=== PATIENT | female | born 1965 | race Caucasian/White ===

== ENCOUNTER 2017-04-06 07:51 | Day surgery (SDC) | payer OTHER ==
[~2017-04-06] VITALS: Ht 160 cm; Wt 88.7 kg
[2017-04-06 08:14] VITALS: Ht 160 cm; Wt 88.7 kg
[2017-04-06] MEDS ORDERED: DOCUSATE (08:36)
[2017-04-06] MEDS ORDERED: OMEPRAZOLE (08:36)
[2017-04-06 08:54] VITALS: BP 106/53; PULSE 65; RESP 18
[2017-04-06] MEDS ORDERED: PROPOFOL 20 ML ONE ×2 (08:57→09:47)
[2017-04-06] MEDS ORDERED: MIDAZOLAM 1 MG/ML 2 ML INJ ONE (08:57)
[2017-04-06] MEDS ORDERED: LIDOCAINE 2% (SDV) 5 ML INJ ONE (08:57)
[2017-04-06 10:10] VITALS: BP 87/51; RESP 20
--- NOTE | 2017-04-06 17:07 | GILP ---
DATE OF PROCEDURE: 04/06/2017 PROCEDURES: 1. Esophagogastroduodenoscopy and biopsy. 2. Colonoscopy. SURGEON: Daniel Ribeiro MD INDICATION: A 51-year-old female undergoing this procedure for persistent epigastric pain and sever e constipation. The purpose is to evaluate the upper GI and lower GI tract and find out the cause o f her symptoms. INFORMED CONSENT: The risk of the procedure, related and unrelated complications, anesthetic risks, alternatives discussed and informed consent was obtained. DESCRIPTION OF PROCEDURE: The patient was brought to the GI lab, sedated by Dr. Acosta. After optimu m sedation, scope was passed with much ease into esophagus, had a quarter-size gastric inlet in the proximal esophagus. Z-line was at 36 cm. Biopsy was taken from the Z-line because there was a tong ue-like small projection extending proximally. Scope was advanced further down into stomach, erosiv e gastritis identified. Random biopsy taken to rule out H. pylori infection. Retroflexion was norm al. Duodenum, first and second part appeared normal. The scope was then straightened out and remov ed with good patient tolerance. IMPRESSION: 1. Gastric inlet in the proximal esophagus, quarter size. 2. Z-line at 35 to 36 cm. 3. There was a small tongue-like projection which was biopsied to rule out Tavarez's. 4. Erosive gastritis. 5. Normal duodenum. PLAN: Review histopathology. COLONOSCOPY: She was turned around. Scope was passed with much ease into rectum and advanced slow ly through sigmoid, descending, transverse colon all the way into the cecum. Could not enter into t he cecum. IC valve identified, pressed IC valve and examined 70% to 80% of the cecum, which was nor mal. The rest of it was filled with stool. I could not see appendix because it was covered with st ool. The patient had a collection of stool at different angulations, but grossly it was normal, pre cluding the visibility at different angulations by 5% to 10%. The rest of the colon appeared normal . Retroversion done in the rectum, hemorrhoids identified. IMPRESSION: 1. Inadequate prep. 2. Normal all the way into cecum. 3. Hemorrhoids. PLAN: To stay on high-fiber diet. We will repeat a colonoscopy in 5 years. Dictated By: DANIEL TEAGUE/FADIA Conf#: [id number] [facility]#: [id number] CC: DANIEL RIBEIRO MD; ;*[facility]*
== END 2017-04-06 12:18 | disposition home or self-care (01) ==
LOC: GIL 07:51
PROVIDERS: ATTEND Internal Medicine Gastroenterology
DX: Z12.11 Encounter for screening for malignant neoplasm of colon (principal); K29.30 Chronic superficial gastritis without bleeding; K21.0 Gastro-esophageal reflux disease with esophagitis; E66.9 Obesity, unspecified; Z68.34 Body mass index [BMI] 34.0-34.9, adult
CPT/HCPCS: 43239; 45378; 88305; 88312; 88313; J2250; Z7610

== ENCOUNTER 2018-05-14 16:01 | Emergency (ER) | END 2018-05-14 18:55 | disposition home or self-care (01) ==

== ENCOUNTER 2018-05-27 14:41 | Emergency (ER) | END 2018-05-27 16:56 | disposition home or self-care (01) ==

== ENCOUNTER 2018-06-23 07:06 | Day surgery (SDC) | END 2018-06-23 12:26 | disposition home or self-care (01) ==